=== PATIENT | male | born 2005 | race Caucasian/White ===

== ENCOUNTER 2024-07-09 15:48 | Emergency (ER) | payer MEDICAID ==
[~2024-07-09] VITALS: Ht 182.9 cm; Wt 65.3 kg
[2024-07-09 17:50] VITALS: BP 122/62
--- NOTE | 2024-07-09 21:17 | EKG ---
[facility] [address] [facility] [place], [place] [address] Signed Normal sinus rhythm with sinus arrhythmia Normal ECG No previous ECGs available Confirmed by Jose Vo DO ([id number]) on 07/09/2024 9:16:54 PM Electronically Signed By: JOSE VO DO 07/09/242116 PATIENT NAME: QI ALLEN Electrocardiogram DATE OF : [birth year] PHYSICIAN: JOSE VO DO REPORT #: [id number] REPORT IS CONFIDENTIAL AND NOT TO BE RELEASED WITHOUT AUTHORIZATION
== END 2024-07-09 17:50 | disposition home or self-care (01) ==
LOC: ED 15:48
DX: J00 Acute nasopharyngitis [common cold] (principal); R05.3 Chronic cough; F17.200 Nicotine dependence, unspecified, uncomplicated
CPT/HCPCS: 71045; 93005; 93010; 99283-25